=== PATIENT | male | born 1945 | race Caucasian/White ===

== ENCOUNTER → 2020-04-08 09:52 | Outpatient (CLI) | payer MEDICARE, SELFPAY ==
[2020-03-22 12:54] VITALS: BMI 34.0
--- NOTE | 2020-04-08 09:53 | MRI_ITS ---
STUDY: MRI BRAIN WITH AND WITHOUT CONTRAST REASON FOR EXAM: Male, 74 years old. F/U SCAN FOR TIA IN DECEMBER TECHNIQUE: Standardized multiplanar fat and water weighted pulse sequences were obtained. IV 20cc dotarem was administered for the contrast portion of the examination. COMPARISON: None. FINDINGS: There is mild cerebral atrophy with widening of the extra-axial spaces and ventricular dilatation. There are a limited number of small white matter hyperintensities, distributed throughout the deep white matter tracts of the cerebral hemispheres, consistent with mild chronic white matter ischemic changes. Large area of insufflation gliosis in the anterior right parietal lobe consistent with a chronic right middle cerebral artery infarct. There is no evidence for recent intracranial ischemia or other cause of cytotoxic edema on diffusion weighted imaging (DWI). Normal T2* images of the brain without demonstrated susceptibility artifact. There is no demonstrated hemosiderin stain. Normal bilateral basal ganglia. Normal thalami. There is no extra-axial fluid accumulation. Lack of the normal flow-void within the petrous and cavernous right internal carotid artery worrisome for occlusion. Normal venous enhancement. There is no enhancing intra-axial or extra-axial abnormality. Normal sella turcica, pituitary gland, infundibular stalk, optic chiasm and hypothalamus. Normal tectal plate and pineal gland. With blurry and degeneration of the right cerebral peduncle. Small areas of encephalomalacia and gliosis within both hemispheres is cerebellum consistent with chronic embolic infarcts. Normal basal cisterns. Normal bilateral temporal bones. Normal bilateral internal auditory canals. No demonstrated orbital abnormality, within the constraints of a routine brain study. Normal visualized paranasal sinuses. Normal calvarium and skull base. Normal visualized soft tissue structures. Normal visualized upper cervical spine. MRI/Brain W/WO Contrast IMPRESSION: Involutional changes of the brain, as described above. 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 Electronically Signed: Chivo Tapia MD at 16:26 EST Tel , Service support ,
--- NOTE | 2020-04-08 09:53 | MRI_ITS ---
STUDY: MRA OF THE HEAD WITHOUT CONTRAST REASON FOR EXAM: Male, 74 years old. stroke, F/U SCAN FOR TIA IN DECEMBER TECHNIQUE: 3-D yikn-ut-mzxpyb (TOF) imaging was performed with MIPs. The study was performed unenhanced. COMPARISON: None. FINDINGS: Nearly occluded petrous right internal carotid artery. Occluded cavernous right internal carotid artery. Normal left cavernous carotid artery with a normal supraclinoid bifurcation. Faintly visualized and likely severely stenotic. Normal left A1 segments of the anterior cerebral artery. There is non-visualization of the anterior communicating artery (ACOM). Faintly visualized of the A2 segment of the right anterior cerebral artery which is likely severely stenotic. Reconstitution of the right middle cerebral artery which is a faintly perfused via the right posterior communicating artery. Oormal left M1 and M2 segments of the middle cerebral arteries, with a normal M1 bifurcation. Normal right posterior communicating artery (PCOM). Normal left posterior communicating artery (PCOM). There is a small atretic right vertebral artery with a dominant left vertebral artery. Normal basilar artery with a normal basilar bifurcation. The visualized bilateral superior cerebellar (SCA) arteries are normal. Normal bilateral P1, P2 and visualized P3 segments of the posterior cerebral arteries. There is no demonstrated aneurysm of the [place]. There is no major vessel occlusion or hemodynamically significant stenosis. There is no demonstrated abnormality of the visualized brain. MRI/MRA Head ONLY without Contrast IMPRESSION: 1. Occluded cavernous right internal carotid artery with reconstitution by the right posterior communicating artery with faint perfusion of the right middle cerebral artery and right anterior cerebral artery. 2. Hypoplastic right vertebral artery. Electronically Signed: Chivo Tapia MD at 16:29 EST Tel , Service support ,
[2020-04-08 11:05] LABS: CREATININE FINGERSTICK 0.9 mg/dL (0.70-1.30); EGFR FINGERSTICK > 60.0000 mL/min (>60)
== END ==
PROVIDERS: PCP Physician Assistant; Referring Provider Psychiatry & Neurology Neurology; Visit Provider Psychiatry & Neurology Neurology
DX: G45.9 Transient cerebral ischemic attack, unspecified (principal)
CPT/HCPCS: 70544; 70553; A9575

== ENCOUNTER → 2020-04-15 10:26 | Outpatient (CLI) | payer MEDICARE, SELFPAY ==
[2020-03-22 12:54] VITALS: BMI 34.0
--- NOTE | 2020-04-15 10:34 | CDU_ITS ---
Reason For Study: TIA Rt. Velocities/BP Lt. Velocities/BP Prox CCA 71/9 cm/sec. Prox CCA 113/23 cm/sec. Mid CCA 69/11 cm/sec. Mid CCA 144/21 cm/sec. Dist CCA 66/12 cm/sec. Dist CCA 125/19 cm/sec. Rt ICA: Known Total Occlusion. Prox ICA 82/18 cm/sec. Prox ECA 217/20 cm/sec. Mid ICA 100/18 cm/sec. Rt Vert A appears occluded. Dist ICA 98/29 cm/sec. Lt. ICA/CCA = 0.7. Prox ECA 129/16 cm/sec. Lt. Vert. 48/11 cm/sec. Right Extracranial There is heterogeneous, smooth atherosclerotic plaque noted in the right common carotid artery. The right internal carotid artery is occluded. There is heterogeneous, smooth atherosclerotic plaque noted in the right external carotid artery. Flow could not be demonstrated in the right vertebral artery. Left Extracranial There is homogeneous, smooth atherosclerotic plaque noted in the left common carotid artery. There is heterogeneous, smooth atherosclerotic plaque noted in the left internal carotid artery. There is intimal thickening but no significant atherosclerotic plaque noted in the left external carotid artery. Antegrade flow is noted in the left vertebral artery. Procedure Carotid Duplex [id number]. Exam performed in department. Interpretation Summary Extensive plaque at the proximal right internal carotid artery with no flow identified consistent with recorded knowledge of known occlusion. Greater than 50% stenosis right external carotid No flow in the right vertebral artery identified Minimal smooth plaque within the proximal left internal carotid artery with less than 50% stenosis and widely patent postoperative changes noted. Less than 50% stenosis left external carotid Patent and antegrade left vertebral Ordering Physician: Eric Ríos Referring Physician: Sahra Brown Performed By: Tamera Hernandez, RDCS, RVT
== END ==
PROVIDERS: PCP Physician Assistant; Referring Provider Psychiatry & Neurology Neurology; Visit Provider Psychiatry & Neurology Neurology
DX: G45.9 Transient cerebral ischemic attack, unspecified (principal); I65.21 Occlusion and stenosis of right carotid artery
CPT/HCPCS: 93880

== ENCOUNTER → 2021-03-27 10:31 | Outpatient (CLI) | payer MEDICARE, SELFPAY ==
--- NOTE | 2021-03-27 10:36 | CDU_ITS ---
Reason For Study: CVA d/t carotid artery occlusion Rt. Velocities/BP Lt. Velocities/BP Prox CCA 73.4/5.6 cm/sec. Prox CCA 134.5/18.2 cm/sec. Mid CCA 72.1/6.9 cm/sec. Mid CCA 93.7/13.3 cm/sec. Dist CCA 66.9/8.2 cm/sec. Dist CCA 90/17 cm/sec. Known ICA Occlusion. Prox ICA 77.3/9.7 cm/sec. Prox ECA 220.7/17.1 cm/sec. Mid ICA 79.1/18.8 cm/sec. Rt. Vert. 11.4 cm/sec. Dist ICA 65.4/13.9 cm/sec. Lt. ICA/CCA = 0.84. Prox ECA 73.6/7.9 cm/sec. Lt. Vert. 54.4/12.7 cm/sec. Right Extracranial There is homogeneous, smooth atherosclerotic plaque noted in the right common carotid artery. The right internal carotid artery is occluded. There is heterogeneous, irregular atherosclerotic plaque noted in the right internal carotid artery. There is heterogeneous, irregular atherosclerotic plaque noted in the right external carotid artery. Antegrade flow is noted in the right vertebral artery. Left Extracranial There is homogeneous, smooth atherosclerotic plaque noted in the left common carotid artery. There is homogeneous, smooth atherosclerotic plaque noted in the left internal carotid artery. There is intimal thickening but no significant atherosclerotic plaque noted in the left external carotid artery. Antegrade flow is noted in the left vertebral artery. Procedure Carotid Duplex [id number]. This is a Carotid Duplex examination using B-mode, color flow and specral Doppler. Previous carotid duplex is under different M#: [id number]. Exam performed in department. VL/Carotid Duplex Ultrasound Interpretation Summary Calcific plaque at the proximal right internal carotid artery with no flow seen in the right internal carotid artery consistent with known occlusion Increased velocity of the right external carotid artery consistent with greater than 50% stenosis but this may be compensatory flow Patent and antegrade right vertebral although with low flow Widely patent left carotid bulb and proximal internal carotid artery with posto perative changes noted. Less than 50% stenosis left internal carotid artery Less than 50% stenosis left external carotid artery Patent antegrade left vertebral Ordering Physician: Eric Ríos Referring Physician: Sahra Brown Performed By: Paris Melo RVT
== END ==
PROVIDERS: PCP Physician Assistant; Referring Provider Psychiatry & Neurology Neurology; Visit Provider Psychiatry & Neurology Neurology
DX: I63.231 Cerebral infarction due to unspecified occlusion or stenosis of right carotid arteries (principal)
CPT/HCPCS: 93880

== ENCOUNTER 2024-11-11 07:07 | Inpatient (IN) | payer MEDICARE, SELFPAY ==
[2024-11-11] VITALS (19 sets, daily range): BP systolic 89–246; BP diastolic 48–227; PULSE 58–108; RESP 14–20; TEMP 36.1–36.9; O2SAT 93–100; BMI 30.4; BMI 29.5
--- NOTE | 2024-11-11 07:23 | EX.ED.DYSGE1 ---
HPI History of Present Illness Chief Complaint: Weakness Informant: patient Onset/Context/Timing Onset: Weeks (6) Context: Gradual Onset Timing: Continuous Quality: Aching Location: Right wrist, right shoulder, left hip Worsened by: Movement Relieved by: Nothing Narrative Narrative: Patient presents with arthralgias and weakness that has been getting worse over the past 6 weeks. Patient states he has seen his primary care physician for this and has also seen an infectious disease specialist. Patient states that they have been working him up for [place] fever. Patient has had 3 negative test for that. Patient states his pain is worse over his right wrist, right shoulder, and left hip. Patient denies any trauma or injury. Patient describes it as aching. Patient was recently started on Vicodin. Patient states he had 2 doses of that yesterday. Patient denies any fevers or chills. [facility] Medical History Kidney stones Former smoker CPAP (continuous positive airway pressure) dependence Sleep apnea Hyperlipidemia Elevated PSA Essential hypertension Tobacco use disorder Diabetes Asthma Carotid artery stenosis Stroke Home Medications ?Medication ?Instructions ?Recorded ?Last Taken ?Type amlodipine 10 mg tablet 10 mg PO DAILY 03/07/20 Unknown History atenolol 50 mg tablet 50 mg PO DAILY 03/07/20 Unknown History budesonide-formoterol HFA 160 2 puff inhalation BID 03/07/20 Unknown History mcg-4.5 mcg/actuation aerosol inhaler (Symbicort) clopidogrel 75 mg tablet (Plavix) 75 mg PO DAILY 03/07/20 Unknown History enalapril maleate 10 mg tablet 10 mg PO BID 03/07/20 Unknown History metformin 500 mg tablet 500 mg PO BID 03/07/20 Unknown History pravastatin 20 mg tablet 20 mg PO DAILY 03/07/20 Unknown History aspirin 81 mg tablet,delayed 81 mg PO DAILY 10/20/20 Unknown History release (Adult Aspirin Regimen) Allergy/AdvReac Type Severity Reaction Status Date / Time atorvastatin (From Lipitor) AdvReac Intermediate Anger Verified 11/11/24 07:10 Family History Mother Diabetes CAD (coronary artery disease) Hypertension Ovarian cancer Father Diabetes CAD (coronary artery disease) Hypertension Colon cancer Cancer Pancreatic Grandmother CVA (cerebral vascular accident) Grandmother CVA (cerebral vascular accident) Surgical History S/P ureteral stent placement Social History Smoking Status: Former smoker Tobacco: How many years used: 50 Electronic Cigarette Use: not used how long ago did patient quit smokin12/2020 second hand exposure: No alcohol intake: former details: hasn't drank in 25years substance use type: does not use ROS ROS ED Constitutional Constitutional ED: Denies chills or fever(s) Eyes Eyes: Denies blurry vision or change in vision ENT ENT ED: Denies rhinorrhea or sore throat Cardiovascular Cardiovascular: Denies chest pain or palpitations Respiratory/Chest Respiratory/Chest: Denies cough or dyspnea Gastrointestinal Gastrointestinal: Denies nausea or vomiting Genitourinary Genitourinary ED: Denies dysuria or hematuria Musculoskeletal Musculoskeletal: Reports arthralgias, back pain and neck pain Integumentary Denies abscess or rash Neurologic Neurologic: Denies headache(s) or weakness Allergic/Immunologic Allergic/Immunologic ED: Denies mouth swelling or urticaria EXAM Physical Exam Const Vital Signs: 11/11/24 07:08 11/11/24 07:18 11/11/24 07:24 Temperature 96.9 F L Temperature Source Temporal Pulse Rate 108 H 100 Respiratory Rate 18 14 Respiratory Pattern Normal Blood Pressure 246/227 H 163/91 H Blood Pressure Mean 233 115 Pulse Ox 98 97 Oxygen Delivery Method Nasal Cannula Room Air 11/11/24 08:08 11/11/24 09:00 11/11/24 10:00 Temperature Temperature Source Pulse Rate 106 H 95 100 Respiratory Rate 20 H 19 H 19 H Respiratory Pattern Blood Pressure 159/80 H 165/83 H 173/89 H Blood Pressure Mean 106 110 117 Pulse Ox 96 96 93 Oxygen Delivery Method Room Air Room Air Room Air 11/11/24 11:00 11/11/24 12:00 11/11/24 13:00 Temperature Temperature Source Pulse Rate 99 95 97 Respiratory Rate 20 H 18 15 Respiratory Pattern Blood Pressure 163/89 H 167/87 H 181/92 H Blood Pressure Mean 113 113 121 Pulse Ox 97 93 98 Oxygen Delivery Method Room Air Room Air Room Air Positive well nourished and well developed General Appearance ED: well developed and NAD HEENT Reports moist mucous membranes Neck supple and no JVD Resp normal respiratory effort and clear to auscultation bilaterally Cardio regular rate and regular rhythm GI non-tender and non-distended Palpation: soft Extremity Extremity Narrative: There is tenderness and mild edema over the right wrist. There is no erythema or warmth noted. There is mild tenderness over the right shoulder. There is also mild tenderness of the lateral aspect of the left hip. Range of motion is limited in all motions of the right wrist and right shoulder secondary to pain. Radial and pedal pulses are equal bilaterally. There is no pain with internal or external rotation of the left lower extremity. There is also some mild tenderness over the left ankle. There is no erythema or warmth noted. Pedal pulses are equal bilaterally. Neuro oriented x3, CN's II-XII intact bilaterally and no sensory deficits noted Sensorium / Orientation: alert Motor Exam: strength 5/5 throughout MDM MDM MDM Narrative Medical decision making narrative: Differential diagnosis includes rheumatoid arthritis, osteoarthritis, gout, dehydration, hypertensive urgency, hypertensive emergency, and electrolyte abnormality. EKG will be obtained to assess for cardiac dysrhythmia and cardiac ischemia. CBC will be obtained to assess for leukocytosis and anemia. Basic metabolic profile will be obtained to assess for electrolyte abnormality and renal function. Sed rate and CRP will be obtained to assess for acute phase reactants. Uric acid will be obtained to assess for gout. History & Record Review Additional record(s) reviewed:: Prior outpatient record and Prior labs Lab Data Attestation: I reviewed the patient's lab results. Lab results narrative: CBC was reviewed. There is slight leukocytosis of 11.8. There is a mild anemia with a hemoglobin of 12.4 and hematocrit 39.9. Basic metabolic profile was reviewed. Glucose was slightly elevated at 163. Sed rate was reviewed and was elevated at 39. CRP was reviewed and was elevated at 111. Urinalysis was reviewed. There is no evidence of urinary tract infection or hematuria. Labs: Laboratory Results - last 24 hr 11/11/24 11/11/24 07:28 11:00 WBC 11.8 H RBC 4.78 Hgb 12.4 L Hct 39.9 L MCV 83.5 MCH 25.9 L MCHC 31.1 L RDW Std Deviation 44.1 H RDW Coeff of Lauren 14.5 Plt Count 225 MPV 11.2 Immature Gran % (Auto) 0.600 Neut % (Auto) 76.7 H Lymph % (Auto) 10.8 L [place] % (Auto) 11.0 H Eos % (Auto) 0.3 Baso % (Auto) 0.6 Absolute Neuts (auto) 9.0 H Absolute Lymphs (auto) 1.27 Nucleated RBC % 0 ESR 39 H Sodium 138 Potassium 4.3 Chloride 99 Carbon Dioxide 24.5 Anion Gap 14 BUN 25 H Creatinine 1.02 Estim Creat Clear Calc 67.38 Est GFR (MDRD) Non-Af 76 BUN/Creatinine Ratio 24.5 H Glucose 163 H Uric Acid 4.4 Calcium 10.3 C-React Prot Ext Range 111.00 H Urine Color Yellow Urine Clarity Clear Urine pH 6.0 Ur Specific [place] 1.020 Urine Protein 30 H Urine Glucose (UA) Normal Urine Ketones Negative Urine Occult Blood Negative Urine Nitrite Negative Urine Bilirubin Negative Urine Urobilinogen Normal Ur Leukocyte Esterase Negative Urine RBC 0-5 SEEN Urine WBC 0-5 SEEN Ur Squamous Epith Cells 0 SEEN Urine Bacteria 0 SEEN Hyaline Casts 5-10 SEEN Urine Mucus 0 SEEN EKG Initial EKG: Attestation: I personally reviewed and interpreted this EKG as follows: Interpretation: Sinus Rhythm (98) and No Acute Injury Pattern Comments: EKG was obtained. On my independent interpretation, it showed a normal sinus rhythm with a rate of 98. [place] interval, QRS interval, and QTc intervals were all normal. There is left axis deviation -28. There are no acute ST or T wave changes. Prior EKG tracings: not available for review Prior: No Prior Management Discussion w/another healthcare provider: Hospitalist Treatment and Re-Evaluation :: Patient was given a dose of morphine here. Patient was also given his morning dose of amlodipine. Patient was advised of his findings. Patient was advised that this could be an inflammatory reaction. Patient is unable to ambulate due to the pain. Because of this, I discussed case with the hospitalist. He will admit the patient to his service. Patient and spouse understood and were agreeable with the plan. All questions were answered. Discharge Plan Dx/Rx/DC Orders Clinical Impression: Polyarthralgia, Difficulty in walking, Debility Disposition Disposition: [facility] Discharge Date/Time: 11/11/24 14:43
[2024-11-11 08:35] LABS: Hematocrit 39.9 % (40-54); Hemoglobin 12.4 g/dL (13.0-16.5); Immature Granulocytes Count 0.070 X10^3/uL (0.0-0.0); Mean Corp Hgb Conc 31.1 g/dL (32-36); Mean Corpuscular Volume 83.5 fL (80-94); Mean Platelet Vol. 11.2 fl (6.2-12.0); NRBC Flagged by Analyzer 0 % (0-5); Platelet Count 225 K/mm3 (150-450); RBC Distribution Width CV 14.5 % (11.6-14.6); RBC Distribution Width SD 44.1 fl (35.1-43.9); Red Blood Count 4.78 M/mm3 (4.6-6.2); White Blood Count 11.8 K/mm3 (4.4-11.0)
[2024-11-11 08:59] LABS: Anion Gap 14 (5-15); BUN 25 mg/dL (4-19); BUN/Creat Ratio 24.5 RATIO (10-20); Calcium,Total 10.3 mg/dL (7.6-11.0); Carbon Dioxide 24.5 mmol/L (21.0-32.0); Chloride 99 mmol/L (98-108); Estimated Creatinine Clearance 67.38 ml/min (50-250); Glucose 163 mg/dL (70-99); Potassium 4.3 mmol/L (3.3-5.1)
[2024-11-11 09:36] LABS: CRP 111.00 mg/L (0.0-3.0); Uric Acid 4.4 mg/dL (3.5-7.2)
[2024-11-11 11:11] LABS: Mucous, Urine 0 SEEN /hpf (<or=2+); Squamous Epithelial Cells - UA 0 SEEN /hpf (0-5)
[2024-11-11 13:04] LABS: Color, Urine Yellow (Yellow); Glucose, Dipstick Normal (Normal); Ketone-Dipstick Negative (Negative); Leukocyte Esterase-Dipstick Negative /ul (Negative); Nitrite-Dipstick Negative (Negative); Occult Blood-Urine Negative /ul (Negative); Protein-Dipstick 30 mg/dl (Negative); Specific Gravity, Urine 1.020 (1.002-1.030); Urine Bilirubin Dipstick Negative (Negative)
[2024-11-11 13:18] LABS: Red Blood Cells-Urine 0-5 SEEN /hpf (0-5)
--- NOTE | 2024-11-11 14:50 | HP.PCM.HOS_ITS ---
[facility] - General General Date of Admission: 11/11/24 Date of Service: 11/11/24 Chief Complaint: Multiple joint pain and swelling for 6 weeks, inability to stand/walk HPI Narrative JEAN-PIERRE STEPHEN, is a 78 M who came to ED with 6-week history of generalized weakness getting worse, unable to get out of the bed, stand or walk along with multiple joints pain and swelling. Patient stated that he visited [place], [place] in last week of August and he stayed there for 6 days. His son who lives there had valley fever/coccidiomycosis when he was digging a ditch/hole. Since then he is having joint pain, swelling, generalized weakness and loss of weight. Patient is states that he lost about 10 to 12 pounds since then but his states he probably lost 7 pounds. He still has good appetite. Initially this started with right shoulder pain and swelling and then left ankle, left hip and currently more severe in right hand/wrist. He still has pain in all the mentioned joints but worst is in right hand mild pain left hip, discomfort in left ankle and right shoulder Right wrist still swollen and painful and tender. No fever He further said he had 3 valley fever/cannot go tests but all are negative. Results are not available to review. Patient is admitted for not able to walk balance or stand up. In the ED, his blood pressure was very high systolic 246, 163/91. He did not take today's medicine but he had antihypertensive medication yesterday. [facility] Medical History Kidney stones Former smoker CPAP (continuous positive airway pressure) dependence Sleep apnea Hyperlipidemia Elevated PSA Essential hypertension Tobacco use disorder Diabetes Asthma Carotid artery stenosis Stroke Home Medications ?Medication ?Instructions ?Recorded ?Last Taken ?Type amlodipine 10 mg tablet 10 mg PO DAILY 03/07/20 Unkn own History atenolol 50 mg tablet 50 mg PO DAILY 03/07/20 Unkn own History budesonide-formoterol HFA 160 2 puff inhalation BID Unknown History mcg-4.5 mcg/actuation aerosol inhaler (Symbicort) clopidogrel 75 mg tablet (Plavix) 75 mg PO DAILY 03/07 Unknown History enalapril maleate 10 mg tablet 10 mg PO BID 03/07/20 U nknown History metformin 500 mg tablet 500 mg PO BID 03/07/20 Unkno wn History pravastatin 20 mg tablet 20 mg PO DAILY 03/07/20 Unkn own History aspirin 81 mg tablet,delayed 81 mg PO DAILY 10/20/20 U nknown History release (Adult Aspirin Regimen) Allergy/AdvReac Type Severity Reaction Status Date / Time atorvastatin (From Lipitor) AdvReac Intermediate Anger Verified 11/11/24 07:10 Family History Mother Diabetes CAD (coronary artery disease) Hypertension Ovarian cancer Father Diabetes CAD (coronary artery disease) Hypertension Colon cancer Cancer Pancreatic Grandmother CVA (cerebral vascular accident) Grandmother CVA (cerebral vascular accident) Surgical History S/P ureteral stent placement Social History Smoking Status: Former smoker Tobacco: How many years used: 50 Electronic Cigarette Use: not used how long ago did patient quit smokin12/2020 second hand exposure: No alcohol intake: former details: hasn't drank in 25years substance use type: does not use ROS ROS Narrative Constitutional: Reports fatigue and weakness. No fever. HEENT: Reports systems reviewed and no addt'l complaints, except as documented Respiratory/Chest: No acute shortness of breath or respiratory distress or wheezing. COPD, 50 pack years of smoking, quit in 2020 CVS: No chest pain or pressure or tightness. Usually BP is controlled Gastrointestinal: Denies coffee ground emesis, hematemesis or vomiting Genitourinary: Denies burning urination or new urinary tract symptoms Musculoskeletal: As described in HPI. Neurologic: Denies seizure-like symptoms. skin: No ulcer. No rash Endocrinology: Reports systems reviewed and no addt'l complaints, except as documented Hematologic/Lymphatic: Reports systems reviewed and no addt'l complaints, except as documented Rest 14 ROS are negative except as mentioned in HPI Vital Signs Vital Signs Vital Signs: 11/11/24 07:08 11/11/24 07:18 11/11/24 07:24 Temperature 96.9 F L Temperature Source Temporal Pulse Rate 108 H 100 Respiratory Rate 18 14 Respiratory Pattern Normal Blood Pressure 246/227 H 163/91 H Blood Pressure Mean 233 115 Pulse Ox 98 97 Oxygen Delivery Method Nasal Cannula Room Air 11/11/24 08:08 11/11/24 09:00 11/11/24 10:00 Temperature Temperature Source Pulse Rate 106 H 95 100 Respiratory Rate 20 H 19 H 19 H Respiratory Pattern Blood Pressure 159/80 H 165/83 H 173/89 H Blood Pressure Mean 106 110 117 Pulse Ox 96 96 93 Oxygen Delivery Method Room Air Room Air Room Air 11/11/24 11:00 11/11/24 12:00 11/11/24 13:00 Temperature Temperature Source Pulse Rate 99 95 97 Respiratory Rate 20 H 18 15 Respiratory Pattern Blood Pressure 163/89 H 167/87 H 181/92 H Blood Pressure Mean 113 113 121 Pulse Ox 97 93 98 Oxygen Delivery Method Room Air Room Air Room Air 11/11/24 13:56 11/11/24 14:00 Temperature 98.3 F Temperature Source Pulse Rate 97 78 Respiratory Rate 15 Respiratory Pattern Blood Pressure 179/80 H 176/89 H Blood Pressure Mean 113 118 Pulse Ox 98 96 Oxygen Delivery Method Weight Weight: 199 lb 15.348 oz Body Mass Index (BMI) 30.4 Physical Exam Narrative General: Alert, Oriented x3, Cooperative HEENT: Atraumatic, PERRLA, EOMI, Normocephalic. Oral: Oral mucosa moist. No Gingival or Mucosal Lesions/ Ulcerations Neck: Supple, No JVD, Negative Carotid Bruits Chest wall/Lungs: Air entry diminished in bilateral lungs. No crepitation/rhonchi Cardiovascular: Regular rate and rhythm, Normal S1,S2, No M/G/R Abdomen: Bowel Sounds Present, Soft, Non Tender, Non-Distended : No dysuria. No renal angle tenderness. No suprapubic tenderness. Extremities: No edema, Capillary Refill Less than 3 Seconds Skin: No rashes, No breakdown Musculoskeletal: Swelling, tenderness and mild erythema/redness in right wrist and dorsum of hand. Mild tenderness present in left ankle and right shoulder no tenderness in left hip. ROM severely restricted over right wrist not attempted because of pain Accu-Chek before meals and at bedtime with Humalog sliding scale coverage and hypoglycemia protocol.. Neurological: Cranial nerves II-XII grossly intact, DTR 2+/4. No acute focal neurological deficit. Psych/Mental Status: Flat affect Results Lab / Micro Data 11/11/24 07:28 11/11/24 07:28 Labs: Laboratory Results - last 24 hr 11/11/24 07:28: WBC 11.8 H, RBC 4.78, Hgb 12.4 L, Hct 39.9 L, MCV 83.5, MCH 25.9 L, MCHC 31.1 L, RDW Std Deviation 44.1 H, RDW Coeff of Lauren 14.5, Plt Count 225, MPV 11.2, Immature Gran % (Auto) 0.600, Neut % (Auto) 76.7 H, Lymph % (Auto) 10.8 L, [place] % (Auto) 11.0 H, Eos % (Auto) 0.3, Baso % (Auto) 0.6, Absolute Neuts (auto) 9.0 H, Absolute Lymphs (auto) 1.27, Nucleated RBC % 0, ESR 39 H, Sodium 138, Potassium 4.3, Chloride 99, Carbon Dioxide 24.5, Anion Gap 14, BUN 25 H, Creatinine 1.02, Estim Creat Clear Calc 67.38, Est GFR (MDRD) Non-Af 76, B UN/Creatinine Ratio 24.5 H, Glucose 163 H, Uric Acid 4.4, Calcium 10.3, C-React Prot Ext Range 111.00 H 11/11/24 11:00: Urine Color Yellow, Urine Clarity Clear, Urine pH 6.0, Ur Specific [place] 1.020, Urine Protein 30 H, Urine Glucose (UA) Normal, Urine Ketones Negative, Urine Occult Blood Negative, Urine Nitrite Negative, Urine Bilirubin Negative, Urine Urobilinogen Normal, Ur Leukocyte Esterase Negative, Urine RBC 0-5 SEEN, Urine WBC 0-5 SEEN, Ur Squamous Epith Cells 0 SEEN, Urine Bacteria 0 SEEN, Hyaline Casts 5-10 SEEN, Urine Mucus 0 SEEN Assessment & Plan Assessment/Plan (1) Impaired mobility and ADLs: PLAN: Plan This 78-year-old gentleman is being admitted for inability to stand up mobilize and compromised/restricted ADL with polyarthralgia and swelling going on for more than 6 weeks 1. Impaired ADL/inability to mobilize/walk: Patient is being admitted on MedSurg floor. PT and OT ordered. IV fluid as BUN slightly elevated 25 probably due to dehydration. 2. Polyarthralgia most severe in her right wrist and hand with swelling, exact etiology unclear probably inflammatory polyarthralgia: ESR and CRP are high, 39 and 111 respectively. RF, anti-CCP, C3-C4 ordered. ID consulted though as per the read 3 times valley fever test were negative. Unclear about the details of the test. 3. Uncontrolled hypertension: Blood pressure was high and systolic more than 200 in ED. Most recent 165/73 and then 171/80. Patient had atenolol 50 mg in ED, amlodipine 10 mg in the ED. IV labetalol and hydralazine ordered as needed with BP parameters. Continue home medication and monitoring and titrate the medications accordingly. 4. COPD/asthma, sleep obstructive sleep apnea: Patient uses CPAP. CPAP ordered. Home maintenance inhaler continued. Patient currently not in exacerbation. Incentive spirometry ordered 5. Diabetes mellitus type 2: Glucose 163. Hold home medication metformin. Accu-Chek before meals and at bedtime with Humalog sliding scale coverage and hypoglycemia protocol. 6. Dyslipidemia: Pravastatin 20 g daily continued. 7. Carotid artery stenosis: Patient on baby aspirin and clopidogrel, continued. 8. DVT prophylaxis: High risk. Lovenox 40 mL subcu daily ordered. Living will/advanced directive/end of life care: Patient does have living will or advanced directive. His in ED is power of employment attorney for health. After discussion of benefits/risks procedures involved with full code, DNR CC arrest and DNR CC, the patient opted for full code. Patient does want artificial life support including intubation, tube feed, ventilator and/chest compression, central venous catheter, vasopressor and DC shock if needed Total time spent in [id number] encounter in discussion of advanced directive 17 minutes. Laboratory Results 11/11/24 07:28: WBC 11.8 H, RBC 4.78, Hgb 12.4 L, Hct 39.9 L, MCV 83.5, MCH 25.9 L, MCHC 31.1 L, RDW Std Deviation 44.1 H, RDW Coeff of Lauren 14.5, Plt Count 225, MPV 11.2, Immature Gran % (Auto) 0.600, Neut % (Auto) 76.7 H, Lymph % (Auto) 10.8 L, [place] % (Auto) 11.0 H, Eos % (Auto) 0.3, Baso % (Auto) 0.6, Absolute Neuts (auto) 9.0 H, Absolute Lymphs (auto) 1.27, Nucleated RBC % 0, ESR 39 H, Sodium 138, Potassium 4.3, Chloride 99, Carbon Dioxide 24.5, Anion Gap 14, BUN 25 H, Creatinine 1.02, Estim Creat Clear Calc 67.38, Est GFR (MDRD) Non-Af 76, B UN/Creatinine Ratio 24.5 H, Glucose 163 H, Uric Acid 4.4, Calcium 10.3, C-React Prot Ext Range 111.00 H 11/11/24 11:00: Urine Color Yellow, Urine Clarity Clear, Urine pH 6.0, Ur Specific [place] 1.020, Urine Protein 30 H, Urine Glucose (UA) Normal, Urine Ketones Negative, Urine Occult Blood Negative, Urine Nitrite Negative, Urine Bilirubin Negative, Urine Urobilinogen Normal, Ur Leukocyte Esterase Negative, Urine RBC 0-5 SEEN, Urine WBC 0-5 SEEN, Ur Squamous Epith Cells 0 SEEN, Urine Bacteria 0 SEEN, Hyaline Casts 5-10 SEEN, Urine Mucus 0 SEEN Charges/Coding Visit Charges Inpatient E&M: 92908 Init Hosp L3 Procedures Hospitalists Procedures: 82070 Advncd Care Plan 30 Min
[2024-11-11] MEDS: 0.45% Normal Saline 1,000 ML 50 ML IV (15:24)
--- NOTE | 2024-11-11 16:01 | CASEMGMT ---
Care Management Face to Face with patient for initial transition planning/care coordination assessment in the ED.? This journalists and other writers introduced self and role at [facility]. Patient alert and oriented. Patient willing to participate in assessment and is able to answer all questions appropriately.? Care providers, pharmacy, and demographics verified. Admitting Diagnosis: weakness Other diagnosis history: ?hyperlipidemia, hypertension, diabetes, asthma, h/o stroke PCP: ?Kevin Specialists: ?none Preferred Pharmacy: Insurance: [facility] Benefit: yes Living Will/HPOA: ?both LW and HPOA completed LNOK: Living Arrangements: ?patient lives with in one story home, at this time is unable to complete any ADLs without assistance, unable to stand due to weakness and pain Transportation: transports DME: ?none HHC: none SNF/Rehab: none Community Resources: none Behavioral Health History: denies Patient goals: Patients discharge plans are uncertain at this time Disposition Plan: admission to acute; RN CM/SW to follow for discharge planning needs that may arise. Omayra Whitney, MICROECONOMICS PROFESSOR, [employer]
[2024-11-11] MEDS: Lactated Ringers 1,000 ML 999 ML IV (18:40)
--- NOTE | 2024-11-11 18:45 | NURSING ---
Staff fed Pt due to his inability to use his right hand. He was given zanaflex for muscle stiffness. Nurse rounding on pt found him to be clammy and responds appropriately. He is drowsy. VS taken and BP low Dr.Chand burroughs and new order to give 1 L ns bolus. Staff remains with patient he is less drowsy and able to have a coherent conversation as he was on admission. He is now talking on the phone with his son. Staff remains with Pt and bolus continues.
[2024-11-11] MEDS: Budesonide Respules 0.5 MG/2 ML AMPUL.NEB. INHALATION (20:15)
[2024-11-11] MEDS: Albuterol 2.5 MG/3 ML VIAL.NEB. INHALATION (20:15)
[2024-11-12] VITALS (8 sets, daily range): BP systolic 114–148; BP diastolic 56–70; PULSE 57–88; RESP 16–20; TEMP 36.6–36.9; O2SAT 96–98; BMI 30.9
[2024-11-12 06:04] LABS: Hematocrit 34.9 % (40-54); Hemoglobin 11.0 g/dL (13.0-16.5); Immature Granulocytes Count 0.020 X10^3/uL (0.0-0.0); Mean Corp Hgb Conc 31.5 g/dL (32-36); Mean Corpuscular Volume 82.7 fL (80-94); Mean Platelet Vol. 10.3 fl (6.2-12.0); NRBC Flagged by Analyzer 0 % (0-5); Platelet Count 200 K/mm3 (150-450); RBC Distribution Width CV 14.4 % (11.6-14.6); RBC Distribution Width SD 42.7 fl (35.1-43.9); Red Blood Count 4.22 M/mm3 (4.6-6.2); White Blood Count 7.9 K/mm3 (4.4-11.0)
[2024-11-12 06:50] LABS: Anion Gap 11 (5-15); BUN 21 mg/dL (4-19); BUN/Creat Ratio 23.4 RATIO (10-20); Calcium,Total 9.9 mg/dL (7.6-11.0); Carbon Dioxide 24.4 mmol/L (21.0-32.0); Chloride 102 mmol/L (98-108); Estimated Creatinine Clearance 77.90 ml/min (50-250); Glucose 120 mg/dL (70-99); Potassium 3.9 mmol/L (3.3-5.1)
[2024-11-12] MEDS: Albuterol 2.5 MG/3 ML VIAL.NEB. INHALATION ×2 (07:02→13:20)
--- NOTE | 2024-11-12 07:32 | PCM.PN.HOSP ---
Reason for Visit Reason for Visit: Diagnoses Other reduced mobility (11/11/24) Other specified health status (11/11/24) Subjective Subjective Still with joint pain but overall improved. Is been ongoing for 6 weeks without any improvement. Patient states that he gets a chronic rash around his mouth due to eczema which she has had long before this issues in regards to arthralgias. Usually use an ointment for the eczema which usually helps it. Objective Data Objective Data Vital Signs: Vital Signs Temp Pulse Resp BP Pulse Ox O2 Del Method O2 Flow Rate 36.6 C 62 16 128/56 H 98 Nasal Cannula 2 11/12/24 03:23 11/12/24 03:23 11/12/24 03:23 11/12/24 03:23 11/12/24 03:23 11/12/24 03:23 11/12/24 03:23 Oxygen Flow Rate (L/min) 2 Oxygen Delivery Method Nasal Cannula Weight: 92.4 kg Body Mass Index (BMI) 30.9 Intake & Output: Intake and Output for Last 24 Hours 11/10/24 11/11/24 11/12/24 23:59 23:59 23:59 Intake Total 1750 / 1750 150 / 150 Output Total 750 / 1000 750 / 750 Balance 1000 / 750 -600 / -600 Lab / Micro Data 11/12/24 05:15 11/12/24 05:15 Labs: Laboratory Results - last 24 hr 11/11/24 07:28: WBC 11.8 H, RBC 4.78, Hgb 12.4 L, Hct 39.9 L, MCV 83.5, MCH 25.9 L, MCHC 31.1 L, RDW Std Deviation 44.1 H, RDW Coeff of Lauren 14.5, Plt Count 225, MPV 11.2, Immature Gran % (Auto) 0.600, Neut % (Auto) 76.7 H, Lymph % (Auto) 10.8 L, [place] % (Auto) 11.0 H, Eos % (Auto) 0.3, Baso % (Auto) 0.6, Absolute Neuts (auto) 9.0 H, Absolute Lymphs (auto) 1.27, Nucleated RBC % 0, ESR 39 H, Sodium 138, Potassium 4.3, Chloride 99, Carbon Dioxide 24.5, Anion Gap 14, BUN 25 H, Creatinine 1.02, Estim Creat Clear Calc 67.38, Est GFR (MDRD) Non-Af 76, BUN/Creatinine Ratio 24.5 H, Glucose 163 H, Uric Acid 4.4, Calcium 10.3, C-React Prot Ext Range 111.00 H 11/11/24 11:00: Urine Color Yellow, Urine Clarity Clear, Urine pH 6.0, Ur Specific [place] 1.020, Urine Protein 30 H, Urine Glucose (UA) Normal, Urine Ketones Negative, Urine Occult Blood Negative, Urine Nitrite Negative, Urine Bilirubin Negative, Urine Urobilinogen Normal, Ur Leukocyte Esterase Negative, Urine RBC 0-5 SEEN, Urine WBC 0-5 SEEN, Ur Squamous Epith Cells 0 SEEN, Urine Bacteria 0 SEEN, Hyaline Casts 5-10 SEEN, Urine Mucus 0 SEEN 11/11/24 16:34: POC Glucose 176 H 11/11/24 16:50: Rheumatoid Factor 15.7 H 11/11/24 17:03: BANDAR-1 Antibody TNP, Sm (Davey) Antibody TNP, PHARMACY ORDER ENTRY TECHNICIAN Antibody TNP, Scl-70 Scleroderma Ab TNP, Antichromatin Antibodies TNP, Centromere B Antibody TNP 11/11/24 18:12: POC Glucose 236 H 11/11/24 21:06: POC Glucose 184 H 11/12/24 05:15: WBC 7.9, RBC 4.22 L, Hgb 11.0 L, Hct 34.9 L, MCV 82.7, MCH 26.1 L, MCHC 31.5 L, RDW Std Deviation 42.7, RDW Coeff of Lauren 14.4, Plt Count 200, MPV 10.3, Immature Gran % (Auto) 0.300, Neut % (Auto) 70.3 H, Lymph % (Auto) 17.9 L, [place] % (Auto) 9.7, Eos % (Auto) 1.3, Baso % (Auto) 0.5, Absolute Neuts (auto) 5.5, Absolute Lymphs (auto) 1.41, Nucleated RBC % 0, Sodium 137, Potassium 3.9, Chloride 102, Carbon Dioxide 24.4, Anion Gap 11, BUN 21 H, Creatinine 0.89, Estim Creat Clear Calc 77.90, Est GFR (MDRD) Non-Af 89, BUN/Creatinine Ratio 23.4 H, Glucose 120 H, Calcium 9.9 11/12/24 06:12: POC Glucose 123 H Physical Exam Const alert and no apparent distress Resp normal respiratory effort, no retractions, no use of accessory muscles and clear to auscultation bilaterally Cardio regular rate, regular rhythm, S1 normal heart sound and S2 normal heart sound GI normal to inspection, nondistended, normoactive bowel sounds and soft to palpation Neuro Sensorium / Orientation: awake and alert Psych affect normal Assessment & Plan Assessment/Plan (1) Arthralgia: PLAN: Uric acid only 4.4. The normal uric acid does not rule out acute gout this level would not seem to suggest that this is acute gouty arthritis. Elevated CRP of 111 and ESR of 39. Elevated RF 15.7. Additional studies including PONCE, CCP, C3 and C4 are currently pending. Has had previous testing for coccidiomycosis which have been negative, though the patient's son recently had pulmonary coccidiomycosis. (patient had been down in [place], [place], where he was exposed to dust) ID consult Continue with pain control: Patient has oxycodone, acetaminophen scheduled ordered as well as as needed ketorolac. (2) Debility: PLAN: Secondary to above. PT OT evaluate and treat. (3) Hypertensive urgency: PLAN: Overall improved. Continue amlodipine 10 mg, atenolol 50 mg, lisinopril 10 mg twice daily. PLAN: Plan VTE prophylaxis with low molecular heparin. Charges/Coding Visit Charges Inpatient E&M: 04655 Subs Hosp L2
[2024-11-12] MEDS: Aspirin E.C. 81 MG Tablet PO (08:35)
[2024-11-12] MEDS: Senna/Docusate Sodium 1 Tablet 2 TABLET PO (11:22)
--- NOTE | 2024-11-12 12:22 | CASEMGMT ---
Addendum entered by Cindy Guzman 11/12/24 16:10: Pt nurse states that he changed his mind on the walker. ADELINA ANDREW into pt room, pt states he does indeed want a walker now. Provided pt with a verbal local in network list of DME companies, pt chose [employer]. Referral sent to [employer] via [employer] at this time. Addendum entered by Cindy Guzman 11/12/24 15:29: Pt to dc this date. ADELINA ANDREW into pt room to discuss walker. Pt states he does not want one and states he will borrow one if he needs to. Pt denies any homegoing needs. Original Note: Spoke with therapy regarding eval. ADELINA ANDREW into pt room, pt sitting up in bed with at bedside. Pt states he feels therapy went ok but he doesn't feel back to normal. Pt states he typically walks without a walker and does not have a walker at home. Pt states he hopes he can dc and not need one. He is aware that ADELINA ANDREW can obtain for him. Pt has a CPAP at home and would like meds to [facility] pharmacy. Pt denies needs at this time. ID c/s.
--- NOTE | 2024-11-12 14:41 | CON.PCM.ID_ITS ---
Assessment & Plan Assessment/Plan (1) Polyarthralgia: PLAN: Low suspicion for coccidioides given lack of fever/chills/sweats, exam findings, and negative testing x3. Most recent coccidioides test was 10/26/24 in [facility]. Has been following with Dr. Rasmussen with [facility] as an outpt for this. Timing of symptoms matches well with when he stopped taking Sotyktu for his psoriasis. Recommend he start that again and see if it helps. Could consider short steroid course in the meantime. Will follow as needed, thank you, d/w nursing HPI Consult Data Date of Consult: 11/12/24 HPI Narrative Reason for Consultation: arthralgia HPI Narrative: JEAN-PIERRE STEPHEN, is a 78 M with h/o BETSY, DM, stroke, psoriasis/eczema, presented with 6 weeks progressive diffuse joint pain, weakness, weight loss. No fever or chills, no night sweats. Over past few days, increased R wrist swelling. At end of August, was in [place], was exposed [place] dust in the [place]. Was visiting son who has had coccidioides in the past. Around same time that he came back from the trip, he stopped taking his Sotyktu due to cost. Has also had increased rash during this time. Was referred to Dr. Rasmussen with [facility] as an outpt, has had 3 negative tests for coccidioides, most recently 10/26/24 in [facility]. Due to worsening sx, came to ED, admitted. Feeling better today, swelling improved. Full ROS performed and neg except as noted above. [facility] Medical History Kidney stones Former smoker CPAP (continuous positive airway pressure) dependence Sleep apnea Hyperlipidemia Elevated PSA Essential hypertension Tobacco use disorder Diabetes Asthma Carotid artery stenosis Stroke Home Medications ?Medication ?Instructions ?Recorded ?Last Taken ?Type amlodipine 10 mg tablet 10 mg PO DAILY 03/07/20 Unkn own History atenolol 50 mg tablet 50 mg PO DAILY 03/07/20 Unkn own History budesonide-formoterol HFA 160 2 puff inhalation BID Unknown History mcg-4.5 mcg/actuation aerosol inhaler (Symbicort) clopidogrel 75 mg tablet (Plavix) 75 mg PO DAILY 03/07 Unknown History enalapril maleate 10 mg tablet 10 mg PO BID 03/07/20 U nknown History metformin 500 mg tablet 500 mg PO BID 03/07/20 Unkno wn History pravastatin 20 mg tablet 20 mg PO DAILY 03/07/20 Unkn own History aspirin 81 mg tablet,delayed 81 mg PO DAILY 10/20/20 U nknown History release (Adult Aspirin Regimen) Allergy/AdvReac Type Severity Reaction Status Date / Time atorvastatin (From Lipitor) AdvReac Intermediate Anger Verified 11/11/24 07:10 Family History Mother Diabetes CAD (coronary artery disease) Hypertension Ovarian cancer Father Diabetes CAD (coronary artery disease) Hypertension Colon cancer Cancer Pancreatic Grandmother CVA (cerebral vascular accident) Grandmother CVA (cerebral vascular accident) Surgical History S/P ureteral stent placement Social History Smoking Status: Former smoker Tobacco: How many years used: 50 Electronic Cigarette Use: not used how long ago did patient quit smokin12/2020 second hand exposure: No alcohol intake: former details: hasn't drank in 25years substance use type: does not use Physical Exam Const alert, oriented x3 and no apparent distress General Appearance: cooperative and well developed HEENT normocephalic and head/scalp atraumatic Eyes PERRL and EOMs intact bilaterally Neck supple and No nodes Resp normal air movement and clear to auscultation bilaterally Cardio regular rate and regular rhythm GI soft to palpation, non-tender and non-distended Extremity Extremity Narrative: Mild R wrist swelling Skin Skin Narrative: some rash on face Neuro CN's II-XII intact bilaterally Lab / Micro Data Attestation: I reviewed the patient's lab results. 11/12/24 05:15 11/12/24 05:15 Labs: Laboratory Results - last 24 hr 11/11/24 16:34: POC Glucose 176 H 11/11/24 16:50: Rheumatoid Factor 15.7 H 11/11/24 17:03: BANDAR-1 Antibody TNP, Sm (Davey) Antibody TNP, SENIOR ELECTRICAL DESIGNER Antibody TNP, Scl-70 Scleroderma Ab TNP, Antichromatin Antibodies TNP, Centromere B Antibody TNP 11/11/24 18:12: POC Glucose 236 H 11/11/24 21:06: POC Glucose 184 H 11/12/24 05:15: WBC 7.9, RBC 4.22 L, Hgb 11.0 L, Hct 34.9 L, MCV 82.7, MCH 26.1 L, MCHC 31.5 L, RDW Std Deviation 42.7, RDW Coeff of Lauren 14.4, Plt Count 200, MPV 10.3, Immature Gran % (Auto) 0.300, Neut % (Auto) 70.3 H, Lymph % (Auto) 17.9 L, [place] % (Auto) 9.7, Eos % (Auto) 1.3, Baso % (Auto) 0.5, Absolute Neuts (auto) 5.5, Absolute Lymphs (auto) 1.41, Nucleated RBC % 0, Sodium 137, Potassium 3.9, Chloride 102, Carbon Dioxide 24.4, Anion Gap 11, BUN 21 H, Creatinine 0.89, Estim Creat Clear Calc 77.90, Est GFR (MDRD) Non-Af 89, B UN/Creatinine Ratio 23.4 H, Glucose 120 H, Hemoglobin A1c 6.3 H, Calcium 9.9 11/12/24 06:12: POC Glucose 123 H 11/12/24 12:02: POC Glucose 153 H
--- NOTE | 2024-11-12 15:45 | DS.PCM_ITS ---
Providers Date of Admission: 11/11/24 Primary Care Physician: PAULETTE De Souza Consultations 11/11/24 14:58 Consult: Infectious Disease Routine Consulting Provider: Fred Maldonado Reason for Consult: 3 TIMES VALLEY FEVER NEG, multiple fleeting arthargia, swelling EMERGENT Consult: No MD Notified: Yes Date Notified: 11/11/24 Time Notified: 14:53 Method of Notification: Text Reason For Visit: GENERALIZED WEAKNESS Diagnosis Discharge Diagnosis (1) Polyarthralgia: Status: Acute Code(s): M25.50 - Pain in unspecified joint Plan: Not felt to be coccidiomycosis per infectious disease. As well as patient has had previously negative studies. [place] to not be infectious given polyarticular as well as the timing of discontinuation of Sotyktu for his psoriatic arthritis. Patient advised that he can resume his Sotyktu and the patient received 5-day burst of prednisone. Plan VTE prophylaxis with low molecular heparin. Medications at Discharge Home Medications amlodipine 10 mg tablet 10 mg PO DAILY 03/07/20 atenolol 50 mg tablet 50 mg PO DAILY 03/07/20 budesonide-formoterol HFA 160 mcg-4.5 mcg/actuation aerosol inhaler (Symbicort) 2 puff inhalation BID 03/07/20 clopidogrel 75 mg tablet (Plavix) 75 mg PO DAILY 03/07/20 enalapril maleate 10 mg tablet 10 mg PO BID 03/07/20 metformin 500 mg tablet 500 mg PO BID 03/07/20 pravastatin 20 mg tablet 20 mg PO DAILY 03/07/20 aspirin 81 mg tablet,delayed release (Adult Aspirin Regimen) 81 mg PO DAILY 10/20/20 acetaminophen 500 mg tablet 1,000 mg (2 x 500 mg) PO Q8 PRN Pain #0 tabs 11/12/24 prednisone 20 mg tablet 40 mg (2 x 20 mg) PO DAILY #10 tabs 11/12/24 Hospital Course Operations None Procedures None Summary of Care Provided Minutes Spent on Discharge: 50 Hospital Course: This is a 78-year-old male who presents with worsening polyarthralgias. Involving his right wrist, and right shoulder especially. The patient was also having difficulty getting up. Patient had previously been evaluated for coccidiomycosis as the patient's son, to whom he recently visited in [facility], had about a pulmonary component. The patient did have infectious workup for them previously which was negative. Patient was seen by infectious disease who felt that this was likely not coccidiomycosis but more likely due to discontinuation of his Sotyktu, that he takes for his psoriatic arthritis. Patient advised that he can resume the September 1999 encounter with his black oxide operator. Patient will be on a prednisone burst in the meantime as well. Patient improved much faster than initially anticipated. Weight / BMI Weight Weight: 92.4 kg Body Mass Index (BMI) 30.9 ABG / Lab / Microbiology Data 11/12/24 05:15 11/12/24 05:15 Laboratory: Laboratory Results - last 24 hr 11/11/24 16:34: POC Glucose 176 H 11/11/24 16:50: Rheumatoid Factor 15.7 H 11/11/24 17:03: BANDAR-1 Antibody TNP, Sm (Davey) Antibody TNP, INSULATION CUPOLA CHARGER Antibody TNP, Scl-70 Scleroderma Ab TNP, Antichromatin Antibodies TNP, Centromere B Antibody TNP 11/11/24 18:12: POC Glucose 236 H 11/11/24 21:06: POC Glucose 184 H 11/12/24 05:15: WBC 7.9, RBC 4.22 L, Hgb 11.0 L, Hct 34.9 L, MCV 82.7, MCH 26.1 L, MCHC 31.5 L, RDW Std Deviation 42.7, RDW Coeff of Lauren 14.4, Plt Count 200, MPV 10.3, Immature Gran % (Auto) 0.300, Neut % (Auto) 70.3 H, Lymph % (Auto) 17.9 L, Bonner % (Auto) 9.7, Eos % (Auto) 1.3, Baso % (Auto) 0.5, Absolute Neuts (auto) 5.5, Absolute Lymphs (auto) 1.41, Nucleated RBC % 0, Sodium 137, Potassium 3.9, Chloride 102, Carbon Dioxide 24.4, Anion Gap 11, BUN 21 H, Creatinine 0.89, Estim Creat Clear Calc 77.90, Est GFR (MDRD) Non-Af 89, B UN/Creatinine Ratio 23.4 H, Glucose 120 H, Hemoglobin A1c 6.3 H, Calcium 9.9 11/12/24 06:12: POC Glucose 123 H 11/12/24 12:02: POC Glucose 153 H D/C Instructions Discharge Diet: No restrictions DC O2, CPAP, BIPAP Needs Home O2 Discharge instructions: No Meaningful Use Info Meaningful Use Meaningful Use Diagnoses (Choose all that apply): None applicable Ischemic Stroke Statin Dosing Therapy Reference: STATIN DOSE THERAPY REFERENCE: * Patients > 75 years receive moderate or high dose statin therapy. * Patients 75 years or YOUNGER should receive HIGH intensity statin dose unless contraindicated. You will be required to document reason for non-treatment if statin daily dose does not meet guidelines. HIGH DOSE STATIN THERAPY DAILY Atorvastatin > than or = to 40 mg Rosuvastatin > than or = to 20 mg Amlodipine + Atorvastatin > than or = to 2.5/40 mg Ezetimibe + Simvastatin 10/80 mg Simvastatin 80mg Discharge Plan Admission Admit Date/Time: 11/11/24 13:40 Primary Reason for Your Visit: Polyarthralgias Attending Provider: Dakota Buckner Primary Care Provider: Sahra Brown Consulting Providers: Fred Maldonado; Uday Austin Instructions Additional Instructions / Restrictions: You had the multiple polyarthralgias (joint inflammations). You had an extensive workup previously and your workup here was unremarkable. It is possible this may be related with the discontinuation of your Sotyktu. The infectious disease doctor feels that he can resume that but you may discuss it further with your black oxide operator. To help further hasten the improvement of your joint swelling will have a prednisone for 5 days. If you have any changes of your symptoms such as worsening, notify your physician or return to the emergency room. Discharge Orders/Prescriptions Prescriptions: New acetaminophen 500 mg Tablet 1,000 mg PO Q8 PRN (Reason: Pain) Qty: 0 0RF prednisone 20 mg tablet 40 mg PO DAILY Qty: 10 0RF Continued amlodipine 10 mg tablet 10 mg PO DAILY metformin 500 mg tablet 500 mg PO BID clopidogrel [Plavix] 75 mg tablet 75 mg PO DAILY atenolol 50 mg tablet 50 mg PO DAILY pravastatin 20 mg tablet 20 mg PO DAILY Rx Instructions: every other day d/t joint pain enalapril maleate 10 mg tablet 10 mg PO BID budesonide-formoterol [Symbicort] 160-4.5 mcg/actuation HFA aerosol inhaler 2 puff INHALATION BID aspirin [Adult Aspirin Regimen] 81 mg tablet,delayed release (DR/EC) 81 mg PO DAILY Referrals / Follow Up: Sahra Brown, PA [Primary Care Provider] - Within 2 Weeks Disposition Disposition (needs filled in before D/C Order can be placed): Home, Self Care Charges/Coding Visit Charges Inpatient E&M: 75616 Disch Hosp >30min
[2024-11-13 11:08] LABS: ANTINUCLEAR ANTIBODIES DIRECT Negative (Negative); Anti-Chromatin <0.2 AI (0.0-0.9); Anti-Jo <0.2 AI (0.0-0.9); Anti-dsDNA Ab <1 IU/mL (0-9); SJOGREN'S Anti-SS-A test < 0.2 AI (0.0-0.9); SJOGREN'S Anti-SS-B test < 0.2 AI (0.0-0.9)
== END 2024-11-12 17:31 | disposition home or self-care (01) | DRG 547 ==
LOC: ED 13:42 → MS3 14:13
PROVIDERS: Admitting Provider Internal Medicine; Emergency Provider Emergency Medicine; PCP Physician Assistant
DX: L40.50 Arthropathic psoriasis, unspecified (principal); I16.0 Hypertensive urgency; J44.9 Chronic obstructive pulmonary disease, unspecified; E11.9 Type 2 diabetes mellitus without complications; I65.29 Occlusion and stenosis of unspecified carotid artery; I10 Essential (primary) hypertension; E78.5 Hyperlipidemia, unspecified; G47.33 Obstructive sleep apnea (adult) (pediatric); R26.2 Difficulty in walking, not elsewhere classified; Z74.09 Other reduced mobility; Z79.84 Long term (current) use of oral hypoglycemic drugs; Z86.73 Personal history of transient ischemic attack (TIA), and cerebral infarction without residual deficits; Z79.899 Other long term (current) drug therapy; Z79.82 Long term (current) use of aspirin; Z79.02 Long term (current) use of antithrombotics/antiplatelets; Z79.51 Long term (current) use of inhaled steroids; Z87.891 Personal history of nicotine dependence
CPT/HCPCS: 36415; 80048; 81001; 82962; 83036; 84550; 85025; 85652; 86038; 86140; 86160; 86200; 86225; 86235; 86431; 93005; 94640; 94668; 97162; 97166; 97802; 99285; P9612; A4216